=== PATIENT | male | born 1995 | race Caucasian/White ===

== ENCOUNTER 2016-08-11 22:54 | Emergency (ER) | payer BC ==
[2016-08-11 23:09] VITALS: BP 131/78
[2016-08-12] MEDS ORDERED: CLONIDINE 0.1 MG/24 HR PATCH.TDWK TD ONE (00:10)
[2016-08-12] MEDS ORDERED: ONDANSETRON ODT 4 MG TAB (6 TAB/DSPK) PO PRN (00:12)
--- NOTE | 2016-08-12 00:12 | ER Document Report ---
ED General - General Chief Complaint: Drug Abuse Stated Complaint: POSSIBLE DRUG WITHDRAWAL Time Seen by Provider: 08/12/16 00:02 Notes: Patient is a 22-year-old male without past medical history, daily opiate user who is visiting from out of town who presents with symptoms of acute opiate withdrawal. Patient states his last use of heroin was 36 hours ago. Since that time he has developed nausea, vomiting, diarrhea, muscle aches, fatigue, and insomnia. States his symptoms are gotten progressively worsens onset. He does describe them as severe in nature. States this feels very similar to when he is withdrawn from narcotics in the past. Nothing improves or worsens his symptoms. He has not seen his primary care doctor regarding todays concerns. He denies any additional acute medical concerns. TRAVEL OUTSIDE OF THE [place] IN LAST 30 DAYS: No Past Medical History - General Information source: Patient - Social History Smoking Status: Current Every Day Smoker Chew tobacco use (# tins/day): No Frequency of alcohol use: None Drug Abuse: Heroin, Prescription drugs Lives with: Family Family History: Reviewed & Not Pertinent Patient has suicidal ideation: No Patient has homicidal ideation: No Renal/ Medical History: Denies: Hx Peritoneal Dialysis Surgical Hx: Negative - Immunizations Hx Diphtheria, Pertussis, Tetanus Vaccination: Yes Review of Systems - Review of Systems Notes: Constitutional: Negative for fever. HENT: Negative for sore throat. Eyes: Negative for visual changes. Cardiovascular: Negative for chest pain. Respiratory: Negative for shortness of breath. Gastrointestinal: Negative for abdominal pain, positive for nausea and vomiting Genitourinary: Negative for dysuria. Musculoskeletal: Negative for back pain. Skin: Negative for rash. Neurological: Negative for headaches, weakness or numbness. 10 point ROS negative except as marked above and in HPI. Physical Exam - Vital signs Vitals: Temp Pulse Resp BP Pulse Ox 97.7 F 81 16 131/78 H 98 08/11/16 23:06 08/11/16 23:06 08/11/16 23:06 08/11/16 23:06 08/11/16 23:06 Interpretation: Normal Notes: PHYSICAL EXAMINATION: GENERAL: Well-appearing, well-nourished and in no acute distress. HEAD: Atraumatic, normocephalic. EYES: Pupils equal round and reactive to light, extraocular movements intact, sclera anicteric, conjunctiva are normal. ENT: nares patent, oropharynx clear without exudates. Moist mucous membranes. NECK: Normal range of motion, supple without lymphadenopathy LUNGS: Breath sounds clear to auscultation bilaterally and equal. No wheezes rales or rhonchi. HEART: Regular rate and rhythm without murmurs ABDOMEN: Soft, nontender, normoactive bowel sounds. No guarding, no rebound. No masses appreciated. EXTREMITIES: Normal range of motion, no pitting or edema. No cyanosis. NEUROLOGICAL: No focal neurological deficits. Moves all extremities spontaneously and on command. PSYCH: Normal mood, normal affect. SKIN: Warm, Dry, normal turgor, no rashes or lesions noted. Course - Re-evaluation Re-evalutation: 08/12/16 02:26 Patient presents with symptoms consistent with acute opiate withdrawal. He denies any additional acute medical complaints. No additional laboratories or imaging studies will be obtained his patient's history is clear and consistent with narcotic withdrawal. A clonidine patch will be started. Zofran will be prescribed as needed for nausea.At this time will discharge with return precautions and follow-up recommendations. Verbal discharge instructions given a the bedside and opportunity for questions given. Medication warnings reviewed. Patient is in agreement with this plan and has verbalized understanding of return precautions and the need for primary care follow-up in the next 24-72 hours. - Vital Signs Vital signs: Temp Pulse Resp BP Pulse Ox 97.7 F 81 16 131/78 H 98 08/11/16 23:06 08/11/16 23:06 08/11/16 23:06 08/11/16 23:06 08/11/16 23:06 Discharge - Discharge Clinical Impression: Opiate withdrawal Condition: Good Disposition: HOME, SELF-CARE Additional Instructions: Wear the clonidine patch for the next 2-3 days or until your symptoms resolve. Narcotic withdrawal is very uncomfortable and nothing will make your symptoms go away completely. Take the Zofran as needed for nausea and vomiting. STOP your use of narcotics now permanently while you still have a chance. This is an extremely dangerous drug and you have very high risk of accidentally killing yourself at some point if you continue to use.
[2016-08-12] MEDS ORDERED: CLONIDINE 0.1 MG/24 HR PATCH.TDWK ONE (00:38)
[2016-08-12] MEDS ORDERED: ONDANSETRON 4 MG TAB.RAPDIS ONE (00:45)
== END 2016-08-12 00:44 | disposition home or self-care (01) ==
LOC: ER 22:54
DX: F11.23 Opioid dependence with withdrawal (principal); R11.2 Nausea with vomiting, unspecified; R19.7 Diarrhea, unspecified; M79.1 Myalgia; G47.00 Insomnia, unspecified; R53.83 Other fatigue; F17.200 Nicotine dependence, unspecified, uncomplicated
CPT/HCPCS: 99283